=== PATIENT | female | born 1970 | race Two or more races ===

== ENCOUNTER 2020-02-24 05:16 | Day surgery (SDC) | payer OTHER ==
[2020-02-24] MEDS ORDERED: PERCOCET 5-3251 EACH PO (10:37)
[2020-02-24] MEDS ORDERED: RECTICARE30 GM TOP (10:37)
== END 2020-02-24 15:00 | disposition home or self-care (01) ==
LOC: CIR.AMB 05:16 → EDBD 10:30 → CIR.AMB 11:30
PROVIDERS: ATTEND Surgery
DX: C21.1 Malignant neoplasm of anal canal (principal); D01.3 Carcinoma in situ of anus and anal canal
CPT/HCPCS: 0184T; 64430

== ENCOUNTER → 2020-07-09 | Day surgery (SDC) | payer OTHER ==
[~2020-07-09] MED LIST: PERCOCET 5-3251 EACH PO; RECTICARE30 GM TOP
== END | disposition home or self-care (01) ==
LOC: ADM 07-02 13:15 → AMB-ENDOS 06:43
PROVIDERS: ATTEND Surgery
DX: K62.89 Other specified diseases of anus and rectum (principal); K64.4 Residual hemorrhoidal skin tags; Z20.828 Contact with and (suspected) exposure to other viral communicable diseases